=== PATIENT | male | born 1970 | race Caucasian/White ===

== ENCOUNTER 2021-02-17 11:16 | Emergency (ER) | payer SELFPAY ==
[~2021-02-17] VITALS: Ht 182.9 cm; Wt 104.5 kg
[~2021-02-17 11:16] MED LIST: CLEOCIN HCL300 MG PO; LORTAB 5/500 501 TAB PO; ORAJEL10% TOP; PEN-VEE K500 MG PO; PERCOCET 325 MG1 TA2 PO
[2021-02-17 11:38] VITALS: TEMP 98.5
[2021-02-17 12:42] LABS: BASO # 0.1 (0.0-0.2); EOS # 0.4 (0.0-0.7); EOS % 3.7 % (0-4.0); GRAN # 6.5 (1.4-6.5); GRAN % 60.1 % (42.2-75.2); HEMATOCRIT 44.9 % (42.0-52.0); HEMOGLOBIN 15.2 g/dl (13.5-18.0); LYMPH # 2.9 (1.2-3.4); LYMPH % 26.7 % (20.0-51.0); MEAN CELL VOLUME 92 fl (80.0-100.0); MEAN CORPUSCULAR HEMOGLOBIN 31 pg (27.0-31.0); MEAN CORPUSCULAR HGB CONC 34 g/dl (33.0-37.0); MEAN PLATELET VOLUME 8.9 fl (7.4-10.4); MONO # 0.9 (0.1-0.6); MONO % 8.1 % (1.7-9.3); PLATELET COUNT 440 K/mm3 (130-400); RED BLOOD COUNT 4.88 M/mm3 (4.20-5.60); REDCELL DISTRIBUTION WIDTH-CV 13.1 % (11.5-14.5)
[2021-02-17 12:49] LABS: PROTHROMBIN TIME 11.7 SECONDS (9.7-12.8)
[2021-02-17 12:54] LABS: ALANINE AMINOTRANSFERASE 39 U/L (4-49); ALBUMIN 4.1 gm/dL (3.5-5.0); ALKALINE PHOSPHATASE 53 U/L (50-136); ANION GAP 10 mmol/L (7-16); AST,SGOT 27 U/L (15-37); BILIRUBIN,TOTAL 0.6 mg/dL (0.0-1.0); BLOOD UREA NITROGEN 10 mg/dL (9-20); CALCIUM 8.9 mg/dL (8.4-10.2); CARBON DIOXIDE 23 mmol/L (22-30); CHLORIDE 106 mmol/L (98-107); GLUCOSE 100 mg/dL (74-106); POTASSIUM 4.2 mmol/L (3.4-5.0); SODIUM 138 mmol/L (137-145); TOTAL PROTEIN 7.2 gm/dL (6.4-8.2)
[2021-02-17 13:06] LABS: TROPONIN-I < 0.012 ng/mL (0.000-0.035)
[2021-02-17 13:30] VITALS: BP 141/90; PULSE 60
[2021-02-26] MEDS ORDERED: PROVENTIL0.09 MG/A1 IH (11:09)
== END 2021-02-17 14:00 | disposition home or self-care (01) ==
LOC: COL.ER 11:16
PROVIDERS: Family Medicine
DX: I49.9 Cardiac arrhythmia, unspecified (principal); F17.210 Nicotine dependence, cigarettes, uncomplicated

== ENCOUNTER → 2021-03-02 | Outpatient (CLI) | payer SELFPAY ==
[~2021-03-02] VITALS: Ht 182.9 cm; Wt 111.1 kg
[~2021-03-02] MED LIST changes: +ASPIRIN 81M81 MG/TA2 PO; +LIPITOR20 MG PO; +MULTIPLE VITAMI1 TA5 PO; +NITROSTAT0.4 MG/TAB SL; +PRIL40 PO; +PROVENTIL0.09 MG/A1 IH
[2021-03-02 10:37] VITALS: BP 149/91; PULSE 71
== END ==
LOC: COL.CARD 10:13
DX: R07.9 Chest pain, unspecified (principal); R06.09 Other forms of dyspnea
CPT/HCPCS: A9500

== ENCOUNTER 2021-04-11 07:19 | Day surgery (SDC) | payer OTHER ==
[2021-04-11] VITALS (11 sets, daily range): BP systolic 123–158; BP diastolic 53–94; PULSE 55–83; TEMP 98
[~2021-04-11] VITALS: Ht 183 cm; Wt 106.3 kg
[~2021-04-11 07:19] MED LIST changes: -ASPIRIN 81M81 MG/TA2 PO; -LIPITOR20 MG PO; -MULTIPLE VITAMI1 TA5 PO; -NITROSTAT0.4 MG/TAB SL; -PRIL40 PO
[2021-04-11 08:52] LABS: HEMATOCRIT 40.9 % (42.0-52.0); HEMOGLOBIN 14.2 g/dl (13.5-18.0); MEAN CELL VOLUME 91 fl (80.0-100.0); MEAN CORPUSCULAR HEMOGLOBIN 32 pg (27.0-31.0); MEAN CORPUSCULAR HGB CONC 35 g/dl (33.0-37.0); MEAN PLATELET VOLUME 8.6 fl (7.4-10.4); PLATELET COUNT 451 K/mm3 (130-400); RED BLOOD COUNT 4.51 M/mm3 (4.20-5.60); REDCELL DISTRIBUTION WIDTH-CV 13.1 % (11.5-14.5)
[2021-04-11 08:57] LABS: INR 1.1 (0.8-3.0); PROTHROMBIN TIME 12.1 SECONDS (9.7-12.8)
[2021-04-11 09:00] LABS: PARTIAL THROMBOPLASTIN TIME 32.8 SECONDS (26.0-37.0)
[2021-04-11] MEDS ORDERED: NITROSTAT0.4 MG/TAB SL (09:02)
[2021-04-11] MEDS ORDERED: ASPIRIN 81M81 MG/TA2 PO (09:02)
[2021-04-11] MEDS ORDERED: LIPITOR20 MG PO (09:03)
[2021-04-11] MEDS ORDERED: PRIL40 PO (09:03)
[2021-04-11] MEDS ORDERED: MULTIPLE VITAMI1 TA5 PO (09:04)
[2021-04-11 09:05] LABS: CALCIUM 8.8 mg/dL (8.4-10.2); CREATININE, serum 0.82 (0.66-1.25); POTASSIUM 3.4 mmol/L (3.4-5.0)
--- NOTE | 2021-04-11 13:00 | NUR ---
Report from [address]. Transferred from label stitcher by bed. Alert and oriented, denies pain at this time. Right Tband with 11 cc air CD&I, good pulses and cap refill < 3 secs. Right groin dressing CD&I and soft to palpation with pedal pulses palpable. VSS
--- NOTE | 2021-04-11 15:45 | NUR ---
Very tearful states " my Paula has my money, my meds, my keys. And I have nothing" This nurse called Paula and she refuses to drive him home from the hospital, but is calling a friend to pick him up and says she will call back if they are able to pick him up
--- NOTE | 2021-04-11 16:30 | NUR ---
Maintenance Porter helped to get girlfriend to have a mutal friend pick pt up from hospital. Pt very tearful and upset with girlfriend.
--- NOTE | 2021-04-11 16:45 | NUR ---
11 cc air released from right Tband and dressing applied. Right groin site CD&I and soft to palpation. INT discontinued intact.
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
--- NOTE | 2021-04-11 17:00 | NUR ---
Pt completely uninterested in discharge instructions, states " I really don't care, I'm a burden for everyone to bear. If I I no one will care." REfused to listen any more instruction. Sergio has arrived at ER entrance. Pt upset that he has to go in a wc and put in truck and argued the whole way to the truck.
== END 2021-04-11 17:09 | disposition home or self-care (01) ==
LOC: COL.CAR 07:19
PROVIDERS: Internal Medicine Cardiovascular Disease
DX: R07.89 Other chest pain (principal); R94.39 Abnormal result of other cardiovascular function study; R06.02 Shortness of breath; I10 Essential (primary) hypertension; F12.90 Cannabis use, unspecified, uncomplicated; Z79.82 Long term (current) use of aspirin; Z20.822 Contact with and (suspected) exposure to COVID-19
CPT/HCPCS: C1760; C1769; C1894; J1644; J2250; J3010; J7030; Q9967